=== PATIENT | male | born 1980 | race Caucasian/White ===

== ENCOUNTER 2017-01-10 11:27 | Inpatient (IN) | payer SELFPAY ==
[~2017-01-10] VITALS: Ht 175.3 cm; Wt 89.0 kg
[2017-01-10] MEDS ORDERED: KETOROLAC 30 MG INJ IV STA (12:32)
--- NOTE | 2017-01-10 13:41 | RADRPT ---
PROCEDURE: CT Abdomen and pelvis without contrast. CLINICAL INDICATION: Abdominal pain TECHNIQUE: CT scan of the abdomen and pelvis with contrast was performed on a multidetector high-r esolution CT scan. . Coronal and sagittal reformatted images were obtained from the axial source i mages. Standard CT scan of the abdomen pelvis without contrast protocols were performed. The total exam CTDI equals 18.23 mGy and the total exam DLP equals 1139.54 mGy-cm. One or more of the following dose reduction techniques were used: - Automated exposure control. - Adjustment of the mA and/or kV according to patient size. Use of iterative reconstruction technique. COMPARISON: None. FINDINGS: There is diverticular changes of the descending and sigmoid colon. Note that there is mild wall thi ckening along the segment of the mid to distal descending colon with adjacent induration and trace f luid consistent with diverticulitis. Note that axial images #100 through 106 demonstrate focal area s of gas along the posterior aspect of the region of diverticulitis consistent with micro perforatio ns. No evidence of abscess. No other evidence of intra-abdominal free air. Remainder the colon is unremarkable. The kidneys are normal in size without calcified renal calculi hydronephrosis or intra renal masses bilaterally. The urinary bladder is contracted but otherwise unremarkable. There is hepatic fatty infiltration but no focal hepatic lesions. The spleen pancreas and adrenal glands are unremarkable. The gallbladder is unremarkable and there is no evidence biliary ductal dilation. No evidence of a bdominopelvic lymphadenopathy. The stomach and small bowel are unremarkable. The aorta is unremarkable without aneurysm. The abdo yeimi and pelvic baum are unremarkable. Lung bases are unremarkable. The osseous structures are u nremarkable. IMPRESSION: 1. Diverticulitis of the mid to distal descending colon with multiple small microperforations and mild adjacent induration and trace fluid. No other evidence of intra-abdominal free fluid, free air or abscesses. 2. No evidence of calcified renal calculi. No obstructive uropathy. 3. Hepatic fatty infiltration. Addendum: Dr. Diaz was telephoned this results on 01/10/2017 at 1335 hours. RPTAT:AAJJ B Livan, Physician Date Time Electronically viewed and signed by Gerda Licona Physician on 01/10/2017 13:41 BM/
[2017-01-10] MEDS ORDERED: SOD CHLORIDE 0.9% 1,000 ML IV ONE (13:48)
--- NOTE | 2017-01-10 13:49 | ERA ---
ER Documentation Chief Complaint Date/Time DATE: 01/10/17 TIME: 13:49 Chief Complaint ap onset yesterday HPI The patient is 36-year-old male, presenting to the ER because of severe left lower quadrant pain for the last 2 days, 05/18, no aggravating or relieving factor, associated with fever. He denies similar symptoms previously, denies headache, neck pain, chest pain, dyspnea, vomiting, dysuria, diarrhea. He does not smoke nor drink Past medical/surgical history: None ROS All systems reviewed and are negative except as per history of present illness. Allergies Allergies: Coded Allergies: No Known Allergy (Unverified , 01/10/17) Physical Exam Vitals Vital Signs Date Time Temp Pulse Resp B/P Pulse Ox O2 Delivery O2 Flow Rate FiO2 01/10/17 15:31 75 14 112/61 95 Room Air 01/10/17 11:30 100.9 98 18 128/81 98 Physical Exam Const: No acute distress. Head: Atraumatic. Eyes: Normal Conjunctiva. ENT: Normal External Ears, Nose and Mouth. Neck: Full range of motion. No meningismus. Resp: Clear to auscultation bilaterally. Cardio: Regular rate and rhythm, no murmurs. Abd: Soft, non distended, normal bowel sounds, moderate left lower quadrant tenderness, no rigidity, rebound, CVA tenderness Skin: No petechiae or rashes. Back: No midline or flank tenderness. Ext: No cyanosis, or edema. Neur: Awake and alert. No focal deficit Psych: Normal Mood and Affect. Result Diagram: 01/10/17 1345 01/10/17 1345 Results 24 hrs Laboratory Tests Test 01/10/17 13:45 01/10/17 13:50 White Blood Count 14.010^3/ul Red Blood Count 4.9410^6/ul Hemoglobin 13.7g/dl Hematocrit 41.4% Mean Corpuscular Volume 83.8fl Mean Corpuscular Hemoglobin 27.7pg Mean Corpuscular Hemoglobin Concent 33.1g/dl Red Cell Distribution Width 12.8% Platelet Count 50633^3/UL Mean Platelet Volume 13.7fl Neutrophils % 67.5% Lymphocytes % 21.0% Monocytes % 9.7% Eosinophils % 1.1% Basophils % 0.4% Nucleated Red Blood Cells % 0.0/100WBC Neutrophils # 9.410^3/ul Lymphocytes # 2.910^3/ul Monocytes # 1.410^3/ul Eosinophils # 0.210^3/ul Basophils # 0.110^3/ul Nucleated Red Blood Cells # 0.010^3/ul Sodium Level 141mmol/L Potassium Level 4.5mmol/L Chloride Level 101mmol/L Carbon Dioxide Level 26mmol/L Anion Gap 19 Blood Urea Nitrogen 10mg/dl Creatinine 0.79mg/dl Glucose Level 118mg/dl Calcium Level 9.3mg/dl Total Bilirubin 0.5mg/dl Direct Bilirubin 0.00mg/dl Indirect Bilirubin 0.5mg/dl Aspartate Amino Transf (AST/SGOT) 35IU/L Alanine Aminotransferase (ALT/SGPT) 52IU/L Alkaline Phosphatase 54IU/L Total Protein 8.1g/dl Albumin 4.7g/dl Globulin 3.40g/dl Albumin/Globulin Ratio 1.38 Lipase 75U/L Urine Color LT. YELLOW Urine Clarity CLEAR Urine pH 7.0 Urine Specific Wolverine 1.015 Urine Ketones NEGATIVE Urine Nitrite NEGATIVE Urine Bilirubin NEGATIVE Urine Urobilinogen 0.2 E.U./dL Urine Leukocyte Esterase NEGATIVE Urine Microscopic RBC NONE SEEN/HPF Urine Microscopic WBC 2-5/HPF Urine Squamous Epithelial Cells OCCASIONAL Urine Hemoglobin NEGATIVE Urine Glucose NEGATIVE% Urine Total Protein 1+ Current Medications Medications (Trade) Dose Ordered Sig/René Route PRN Reason Start Time Stop Time Status Last Admin Dose Admin Ketorolac Tromethamine 30 mg 30 mg ONCE STAT IV 01/10/17 12:32 01/10/17 12:33 DC 01/10/17 12:32 Sodium Chloride 1,000 ml @ 0 mls/hr Q0M ONCE IV 01/10/17 13:48 01/10/17 13:49 DC 01/10/17 13:53 Ciprofloxacin/ Dextrose 200 ml @ 200 mls/hr ONCE ONCE IVPB 01/10/17 14:00 01/10/17 14:59 DC 01/10/17 13:53 Metronidazole (Flagyl 500 Mg (Pmx)) 100 ml @ 100 mls/hr ONCE ONCE IVPB 01/10/17 14:00 01/10/17 14:59 DC 01/10/17 13:53 Morphine Sulfate (morphine) 4 mg ONCE STAT IV 01/10/17 13:55 01/10/17 13:56 DC 01/10/17 14:11 Ondansetron HCl 4 mg 4 mg ONCE STAT IV 01/10/17 13:55 01/10/17 13:56 DC 01/10/17 14:11 Ciprofloxacin/ Dextrose 200 ml @ 200 mls/hr Q12 IVPB 01/10/17 21:00 Metronidazole 100 ml @ 100 mls/hr Q8 IVPB 01/10/17 22:00 Potassium Chloride/Dextrose/ Sod Cl (D5-1/2ns + KCl 20 Meq) 1,000 ml @ 75 mls/hr [id number] IV 01/10/17 16:08 IV Flush (NS 3 ml) 3 ml PER PROTOCOL IV 01/10/17 16:30 Ondansetron HCl (Zofran Inj) 4 mg Q6H PRN IV NAUSEA AND/OR VOMITING 01/10/17 16:30 Acetaminophen (Tylenol Tab) 650 mg Q6H PRN PO PAIN LEVEL 1-3 OR FEVER 01/10/17 16:30 Acetaminophen (Tylenol Supp) 650 mg Q6H PRN [place] PAIN LEVEL 1-3 OR FEVER 01/10/17 16:30 Oxycodone/ Acetaminophen (Percocet (5/ 325)) 1 tab Q6H PRN PO MODERATE PAIN LEVEL 4-6 01/10/17 16:30 Morphine Sulfate (morphine) 2 mg Q4H PRN IV SEVERE PAIN LEVEL 7-10 01/10/17 16:30 Docusate Sodium (Colace) 100 mg Q12H PRN PO CONSTIPATION 01/10/17 16:30 Bisacodyl (Dulcolax Supp) 10 mg DAILY PRN [place] CONSTIPATION 01/10/17 16:30 Pantoprazole (Protonix Iv) 40 mg DAILY@06 IV 01/11/17 06:00 Procedures/[place] [id number] Radiology Main Line: [phone] DIAGNOSTIC IMAGING REPORT Patient: NASIR WILDER : 1980 Age: 36 Sex: M MR #: [id number] DOS: 01/10/17 1232 Ordering MD: CARLOS DIAZ MD Location: [facility] Room/Bed: PROCEDURE: CT Abdomen and pelvis without contrast. CLINICAL INDICATION: Abdominal pain TECHNIQUE: CT scan of the abdomen and pelvis with contrast was performed on a multidetector high-resolution CT scan. . Coronal and sagittal reformatted images were obtained from the axial source images. Standard CT scan of the abdomen pelvis without contrast protocols were performed. The total exam CTDI equals 18.23 mGy and the total exam DLP equals 1139.54 mGy- cm. One or more of the following dose reduction techniques were used: - Automated exposure control. - Adjustment of the mA and/or kV according to patient size. Use of iterative reconstruction technique. COMPARISON: None. FINDINGS: There is diverticular changes of the descending and sigmoid colon. Note that there is mild wall thickening along the segment of the mid to distal descending colon with adjacent induration and trace fluid consistent with diverticulitis. Note that axial images #100 through 106 demonstrate focal areas of gas along the posterior aspect of the region of diverticulitis consistent with micro perforations. No evidence of abscess. No other evidence of intra-abdominal free air. Remainder the colon is unremarkable. The kidneys are normal in size without calcified renal calculi hydronephrosis or intra renal masses bilaterally. The urinary bladder is contracted but otherwise unremarkable. There is hepatic fatty infiltration but no focal hepatic lesions. The spleen pancreas and adrenal glands are unremarkable. The gallbladder is unremarkable and there is no evidence biliary ductal dilation. No evidence of abdominopelvic lymphadenopathy. The stomach and small bowel are unremarkable. The aorta is unremarkable without aneurysm. The abdominal and pelvic baum are unremarkable. Lung bases are unremarkable. The osseous structures are unremarkable. IMPRESSION: 1. Diverticulitis of the mid to distal descending colon with multiple small microperforations and mild adjacent induration and trace fluid. No other evidence of intra-abdominal free fluid, free air or abscesses. 2. No evidence of calcified renal calculi. No obstructive uropathy. 3. Hepatic fatty infiltration. Addendum: Dr. Diaz was telephoned this results on 01/10/2017 at 1335 hours. RPTAT:AAJJ Physician Bri Date Time Electronically viewed and signed by Physician Bri on 01/10/2017 13:41 BM/ CC: CARLOS DIAZ MD MEDICAL MAKING DECISION: The patient is a 36-year-old male, presenting with acute diverticulitis. He was treated with 1 L normal saline, Toradol 30 mg IV, morphine 4 mg IV for pain and Zofran formula IV for nausea, Cipro IV and Flagyl IV for acute diverticulitis. The differential diagnoses considered include but are not limited to cholelithiasis, cholecystitis, cystitis, pancreatitis, hepatitis, gastritis, peptic ulcer disease, gastric ulcer, appendicitis, diverticulitis, cholangitis, choledocholithiasis, partial small bowel obstruction. Departure Diagnosis: Primary Impression: Diverticulitis Condition: Stable Comments Consultation: I discussed the patient with the on-call general surgeon Dr. Beckham at 4:30 PM, who was made aware of the labs, the treatment, the patient condition. He accepted the consult I discussed the findings with the patient. I discussed the patient with the on- call hospitalist Dr. Zhong who was made aware of the lab, the treatment, the patient condition and my discussion with the general surgeon. The patient is admitted to medical surgery bed The patient's blood pressure was elevated (>120/80) but appears stable without evidence of hypertension emergency or urgency. The patient was counseled about the risks of hypertension and urged to pursue outpatient monitoring and therapy within a week after discharge with their primary care physician. GRACIE MALONE MD Jan 10, 2017 13:49
[2017-01-10] MEDS ORDERED: morphine 4 MG/ML VIAL IV STA (13:55)
[2017-01-10] MEDS ORDERED: ONDANSETRON 4 MG INJ IV STA (13:55)
[2017-01-10 13:59] LABS: ADD SCAN DIFF NO
[2017-01-10 14:00] LABS: BASOPHIL # 0.1 10^3/ul (0.0-0.1); BASOPHILS % 0.4 % (0.0-2.0); EOSINOPHILS # 0.2 10^3/ul (0.0-0.5); EOSINOPHILS % 1.1 % (0.0-7.0); HEMATOCRIT 41.4 % (42.0-52.0); HEMOGLOBIN 13.7 g/dl (14.0-18.0); LYMPHOCYTES # 2.9 10^3/ul (0.8-2.9); MEAN CORPUSCULAR HEMOGLOBIN 27.7 pg (29.0-33.0); MEAN CORPUSCULAR HGB CONC 33.1 g/dl (32.0-37.0); MEAN CORPUSCULAR VOLUME 83.8 fl (82.0-101.0); MEAN PLATELET VOLUME 13.7 fl (7.4-10.4); MONOCYTE # 1.4 10^3/ul (0.3-0.9); MONOCYTES % 9.7 % (0.0-11.0); NEUTROPHIL # 9.4 10^3/ul (1.6-7.5); NEUTROPHILS % 67.5 % (39.0-77.0); PLATELET COUNT 122 10^3/UL (140-415); RED BLOOD COUNT 4.94 10^6/ul (4.70-6.10); RED CELL DISTRIBUTION WIDTH 12.8 % (11.5-14.5)
[2017-01-10] MEDS ORDERED: CIPROFLOXACIN 400MG/D5W 200 ML IVPB ONE (14:00)
[2017-01-10] MEDS ORDERED: metroNIDAZOLE 500 MG/NS (PMX) 100 ML IVPB ONE (14:00)
[2017-01-10 14:05] LABS: ADD UMIC YES; URINE BILIRUBIN (Dip) NEGATIVE (NEGATIVE); URINE BLOOD (Dip) NEGATIVE (NEGATIVE); URINE COLOR LT. YELLOW (YELLOW); URINE GLUCOSE (Dip) NEGATIVE (NEGATIVE); URINE KETONES (Dip) NEGATIVE (NEGATIVE); URINE LEUKOCYTE ESTERASE (Dip) NEGATIVE (NEGATIVE); URINE NITRITE (Dip) NEGATIVE (NEGATIVE); URINE TOTAL PROTEIN (Dip) 1+ (NEGATIVE); URINE UROBILINOGEN (Dip) 0.2 E.U./dL (0.1-1.0)
[2017-01-10 14:10] LABS: ALBUMIN 4.7 g/dl (3.3-4.9); POTASSIUM 4.5 mmol/L (3.5-5.1)
[2017-01-10 14:11] LABS: URINE RBCS NONE SEEN /HPF (0)
[2017-01-10 14:12] LABS: SQUAMOUS EPITHELIAL CELL,UR OCCASIONAL
[2017-01-10 14:12] LABS: BILIRUBIN,INDIRECT 0.5 mg/dl (0-1.1); BILIRUBIN,TOTAL 0.5 mg/dl (0.2-1.3); CREATININE 0.79 mg/dl (0.61-1.24)
[2017-01-10 14:13] LABS: CALCIUM 9.3 mg/dl (8.4-10.2); TOTAL PROTEIN 8.1 g/dl (6.1-8.1)
[2017-01-10 14:17] LABS: ALBUMIN/GLOBULIN RATIO 1.38
[2017-01-10] MEDS ORDERED: DOCUSATE SODIUM 100 MG CAP PO PRN (16:30)
[2017-01-10] MEDS ORDERED: ACETAMINOPHEN 650 MG SUPP PR PRN (16:30)
[2017-01-10] MEDS ORDERED: morphine 2 MG INJ IV PRN (16:30)
[2017-01-10] MEDS ORDERED: BISACODYL 10 MG SUPP PR PRN (16:30)
[2017-01-10] MEDS ORDERED: ONDANSETRON 4 MG INJ IV PRN (16:30)
[2017-01-10] MEDS ORDERED: ACETAMINOPHEN 325 MG TAB PO PRN (16:30)
[2017-01-10] MEDS ORDERED: OXYCODONE/ACETAMINOPHEN (5/325) TAB PO PRN (16:30)
[2017-01-10] MEDS ORDERED: NACL 0.9% 3 ML SYG IV SCH (16:30)
--- NOTE | 2017-01-10 19:25 | HP ---
DATE OF ADMISSION: 01/10/2017 CONSULTANTS: 1. Dr. Enriquez 2. Dr. Beckham CHIEF COMPLAINT: Left lower abdominal pain. HISTORY OF PRESENT ILLNESS: This is a 36-year-old gentleman, no significant past medical history, w ho presents to [facility] secondary to having left lower quadrant abdominal pain x 3 days without any fever or chills. He denies having any sick contact. No recent travel history. No consumption of ____ food. No loose bowel, no change in the color of stool. The pain was 10/10, nonradiating. No improvement with activity or rest. The patient did not seek any medical attention for the past 3 days, did not take any wcwr-[id number] medications. Upon arrival to ER, the patien t's WBC was found to be elevated at 14. CT abdomen and pelvis was obtained which demonstrated diver ticulitis of the mid to distal descending colon with multiple small microperforations and mild ____ of the trace fluid. No other evidence of intraperitoneal free fluid, free air or abscess. There is no evidence of calcified renal calculi or obstructive uropathy. The patient was treated with IV fl uid, ciprofloxacin and Flagyl, and General Surgery was consulted from course of emergency room. At this time, patient denies having any chest pain, shortness of breath, nausea, vomiting, diarrhea. N o headache, dizziness, lightheadedness. No change in visual acuity, diplopia, photophobia. Minimal abdominal discomfort in left lower quadrant. No change in the color of stool. No hematemesis, no hematochezia, no change in his appetite. PAST MEDICAL HISTORY: None. PAST SURGICAL HISTORY: None. MEDICATIONS: None. SOCIAL HISTORY: He smokes cigarettes once or twice per week. No alcohol, no illicit drugs. REVIEW OF SYSTEMS: As above per HPI. Otherwise, 12 review of systems have been found to be negativ e. PHYSICAL EXAMINATION: VITAL SIGNS: Temperature 100.9, pulse 75, respirations 14, blood pressure 112/61, oxygen saturation 95% in room air. GENERAL APPEARANCE: The patient is lying in bed comfortable without any distress. He is awake, kimberley rt, oriented. He is able to answer my questions properly. EYES, EARS, NOSE, THROAT: Conjunctivae, lids are normal. Pupils are normal. Extraocular normal. Hearing grossly normal. Lips, teeth and gums normal. Oral mucosa is moist. NECK: Supple. Trachea is midline. No lymphadenopathy. RESPIRATORY: Effort is normal. Clear to auscultation bilaterally. CARDIOVASCULAR: Normal S1, S2. Regular rhythm and rate. Murmur, no bruits, no edema. Peripheral pulses, radial pulses palpable. Capillary refill is normal. CHEST: Normal expansion of thorax during inspiration. GASTROINTESTINAL: Abdomen is soft, mildly tender in left lower quadrant. Bowel sounds are present. No guarding, no rebound. GENITOURINARY: Deferred. MUSCULOSKELETAL: Upper, lower extremities within normal limits. Full range of motion. Strength 5/ 5, both upper and lower extremities. NEUROLOGIC: Cranial nerves II-XII are grossly intact. PSYCHIATRIC: Normal judgment and insight. Alert, oriented x3. Mood and affect are normal. LABORATORY WORK: WBC 14, hemoglobin 13.7, hematocrit 41.4, platelets 122. Sodium 141, potassium 4. 5, chloride 101, bicarbonate 26, BUN 10, creatinine 0.79, glucose 118. LFTs all within normal limit s. Urinalysis negative except total protein +1. IMAGING: CT abdomen and pelvis as above per HPI. ASSESSMENT AND PLAN: 1. Diverticulitis with microperforation. The patient has been started on ciprofloxacin and Flagyl, IV fluid, n.p.o. General Surgery and Gastroenterology have been consulted. The patient will be co ntinued to be medically managed. No surgical intervention as per General Surgery. 2. Leukocytosis secondary to above. Continue IV antibiotics. 3. For deep venous thrombosis prophylaxis, on sequential compression devices. 4. For gastrointestinal prophylaxis, on proton pump inhibitor. 5. Will continue to monitor patient closely. Further recommendations, management as per clinical c ourse. Dictated By: IMELDA PINEDA MD PN/NTS Conf#: [id number] DID#: [id number]
[2017-01-10 19:30] VITALS: TEMP 98.5
[2017-01-10 19:51] VITALS: Ht 175.3 cm; Wt 89.0 kg
[2017-01-10 20:10] VITALS: BP 133/72; RESP 18
--- NOTE | 2017-01-10 20:10 | CONS ---
DATE OF ADMISSION: 01/10/2017 DATE OF CONSULTATION: 01/10/2017 TYPE OF CONSULTATION: Surgical. REFERRING PHYSICIAN: Enrique Malone MD CHIEF COMPLAINT: 1. Diverticulitis with microperforation. 2. Abdominal pain. 3. BMI 28. 4. Leukocytosis. 5. Anemia. 6. Hepatic fatty liver. HISTORY OF PRESENT ILLNESS: Jocelynn Corona is a 36-year-old male who presents with 3 days of abdominal pain in the left lower quadrant, associated with fevers and some chills, but no nausea or vomiting. No chest pain, shortness of breath. He is having normal bowel function. No visual or neurologic changes. No dysuria. No trauma or sick contacts. No previous history of the same. Pa in is sharp without radiation. In the emergency room, he was found to have leukocytosis and fever, otherwise stable vitals. His CT scan identified diverticulitis of the mid to distal descending colon with multiple small microperfo rations and adjacent induration and trace fluid; however, no free fluid, no air, or abscesses are id entified. There is hepatic fatty infiltration. Surgical consult is obtained for further evaluation and treatment. PAST MEDICAL HISTORY: 1. Hepatic fatty liver. 2. BMI 28. 3. Diverticulosis with diverticulitis and microperforation of the descending colon. 4. Leukocytosis. 5. Anemia. PAST SURGICAL HISTORY: Denies. ALLERGIES: DENIES. SOCIAL HISTORY: Denies alcohol, drugs, or tobacco. FAMILY HISTORY: Noncontributory. REVIEW OF SYSTEMS: A 12-point systems negative unless addressed in HPI. EXAMINATION: VITAL SIGNS: T-max of 100.9, pulse 70s to 90s, blood pressure 112/61, satting 95% on room air. GENERAL: No acute distress, somewhat uncomfortable. HEENT: Pupils equal, reactive. No scleral icterus. Mucous membranes are somewhat dry. NECK: Supple. No JVD. PULMONARY: Normal respiratory effort. No wheezing. CARDIAC: S1, S2 present and regular. ABDOMEN: Soft. No rebound, no guarding, not rigid, not distended. Tender in the left lower quadra nt. EXTREMITIES: No edema. VASCULAR: Capillary refill less than 2 seconds. NEUROLOGIC: Alert, oriented, moves all 4 extremities grossly. LABORATORY AND RADIOGRAPHIC: As per chart and HPI. ASSESSMENT AND PLAN: Mr. Jocelynn Corona is a 36-year-old male. 1. Abdominal pain secondary to diverticulitis with microperforation. However, hemodynamically stab le and abdomen not peritonitic. Continue antibiotics, IV fluids, n.p.o., and close monitoring. If he continues to improve, we will advance his diet and bring him back for an eventual outpatient lapa roscopic left colectomy. However, if he is not improving or worsening, he may need to proceed with surgery, which is at higher risk for open exploration and possible colostomy. 2. Leukocytosis secondary to above. Treatment as above. 3. Anemia without evidence of acute blood loss. He will benefit from eventual outpatient colonosco py after this is improved. 4. Fatty liver. The patient is encouraged to optimize his diet and lifestyle to improve his overal l health status. 5. Body mass index 28. Once again, the patient is encouraged to optimize his nutrition and lifesty le to improve his overall health status. Thank you very much for consulting me in this patient's care. Dictated By: JAZZ CORLEY/PATRICA Conf#: [id number] DID#: [id number] CC: ENRIQUE MALONE MD;*EndCC*
[2017-01-10] MEDS: D5W-0.45 NACL + KCL 20 MEQ 1,000 ML IV SCH (20:24)
[2017-01-10] MEDS: CIPROFLOXACIN 400MG/D5W 200 ML IVPB SCH (20:24)
[2017-01-10] MEDS: metroNIDAZOLE 500 MG/NS (PMX) 100 ML IVPB SCH (23:33)
[2017-01-11] MEDS: D5W-0.45 NACL + KCL 20 MEQ 1,000 ML IV SCH ×2 (05:28→15:10)
[2017-01-11 05:42] LABS: ADD SCAN DIFF NO
[2017-01-11 05:48] LABS: ABNORMAL IP MESSAGE 1; BASOPHIL # 0.1 10^3/ul (0.0-0.1); BASOPHILS % 0.4 % (0.0-2.0); EOSINOPHILS # 0.2 10^3/ul (0.0-0.5); EOSINOPHILS % 1.2 % (0.0-7.0); LYMPHOCYTES # 3.1 10^3/ul (0.8-2.9); LYMPHOCYTES % 21.2 % (15.0-51.0); MEAN CORPUSCULAR HEMOGLOBIN 27.7 pg (29.0-33.0); MEAN CORPUSCULAR HGB CONC 32.5 g/dl (32.0-37.0); MEAN CORPUSCULAR VOLUME 85.1 fl (82.0-101.0); MEAN PLATELET VOLUME 13.9 fl (7.4-10.4); MONOCYTE # 1.5 10^3/ul (0.3-0.9); MONOCYTES % 10.5 % (0.0-11.0); NEUTROPHIL # 9.5 10^3/ul (1.6-7.5); NEUTROPHILS % 66.3 % (39.0-77.0); PLATELET COUNT 119 10^3/UL (140-415); RED CELL DISTRIBUTION WIDTH 12.6 % (11.5-14.5); WHITE BLOOD COUNT 14.4 10^3/ul (4.8-10.8)
[2017-01-11] MEDS: metroNIDAZOLE 500 MG/NS (PMX) 100 ML IVPB SCH ×3 (05:56→22:21)
[2017-01-11] MEDS: PANTOPRAZOLE 40 MG INJ IV SCH (05:56)
[2017-01-11 05:57] LABS: ALBUMIN 3.6 g/dl (3.3-4.9)
[2017-01-11 05:58] LABS: POTASSIUM 4.1 mmol/L (3.5-5.1)
[2017-01-11 06:00] LABS: BILIRUBIN,INDIRECT 0.5 mg/dl (0-1.1); BILIRUBIN,TOTAL 0.5 mg/dl (0.2-1.3); CREATININE 0.84 mg/dl (0.61-1.24)
[2017-01-11 06:01] LABS: ALBUMIN/GLOBULIN RATIO 1.12; CALCIUM 8.2 mg/dl (8.4-10.2); MAGNESIUM 1.9 mg/dl (1.7-2.5); TOTAL PROTEIN 6.8 g/dl (6.1-8.1)
[2017-01-11 07:38] VITALS: BP 109/55; RESP 19
[2017-01-11] MEDS: CIPROFLOXACIN 400MG/D5W 200 ML IVPB SCH ×2 (09:02→20:21)
--- NOTE | 2017-01-11 17:20 | PN ---
Date/Time of Note Date/Time of Note DATE: 01/11/17 TIME: 17:19 Assessment/Plan VTE Prophylaxis VTE Prophylaxis Intervention: SCD's Lines/Catheters IV [facility] Peripheral IV Urinary Cath still in place: No Assessment/Plan Assessment/Plan 1. Diverticulitis with microperforation. The patient has been started on ciprofloxacin and Flagyl, IV fluid, n.p.o. General Surgery and Gastroenterology following The patient will be continued to be medically managed. No surgical intervention as per General Surgery. 2. Leukocytosis secondary to above. Continue IV antibiotics. 3. For deep venous thrombosis prophylaxis, on sequential compression devices. 4. For gastrointestinal prophylaxis, on proton pump inhibitor. 5. Will continue to monitor patient closely. Further recommendations, management as per clinical course. Subjective 24 Hr Interval Summary Free Text/Dictation no abd pain, pt is NPO, on IVF and IV abx Exam/Review of Systems Vital Signs Vitals Vital Signs Date Time Temp Pulse Resp B/P Pulse Ox O2 Delivery O2 Flow Rate FiO2 01/11/17 07:38 99.4 88 19 109/55 95 01/10/17 19:30 Room Air Intake and Output 01/10/17 01/10/17 01/11/17 15:00 23:00 07:00 Intake Total 200 ml 625 ml Output Total 400 ml Balance 200 ml 225 ml Exam GENERAL: No acute distress, somewhat uncomfortable. HEENT: Pupils equal, reactive. No scleral icterus. Mucous membranes are somewhat dry. NECK: Supple. No JVD. PULMONARY: Normal respiratory effort. No wheezing. CARDIAC: S1, S2 present and regular. ABDOMEN: Soft. No rebound, no guarding, not rigid, not distended. Tender in the left lower quadrant. EXTREMITIES: No edema. VASCULAR: Capillary refill less than 2 seconds. NEUROLOGIC: Alert, oriented, moves all 4 extremities grossly. Results Result Diagram: 01/11/17 0525 01/11/17 0525 Results 24 hrs Laboratory Tests Test 01/11/17 05:25 White Blood Count 14.4 H Red Blood Count 4.70 Hemoglobin 13.0 L Hematocrit 40.0 L Mean Corpuscular Volume 85.1 Mean Corpuscular Hemoglobin 27.7 L Mean Corpuscular Hemoglobin Concent 32.5 Red Cell Distribution Width 12.6 Platelet Count 119 L Mean Platelet Volume 13.9 H Neutrophils % 66.3 Lymphocytes % 21.2 Monocytes % 10.5 Eosinophils % 1.2 Basophils % 0.4 Nucleated Red Blood Cells % 0.0 Neutrophils # 9.5 H Lymphocytes # 3.1 H Monocytes # 1.5 H Eosinophils # 0.2 Basophils # 0.1 Nucleated Red Blood Cells # 0.0 Sodium Level 135 Potassium Level 4.1 Chloride Level 106 Carbon Dioxide Level 23 Anion Gap 10 # Blood Urea Nitrogen 11 Creatinine 0.84 Glucose Level 109 Calcium Level 8.2 L Magnesium Level 1.9 Total Bilirubin 0.5 Direct Bilirubin 0.00 Indirect Bilirubin 0.5 Aspartate Amino Transf (AST/SGOT) 19 Alanine Aminotransferase (ALT/SGPT) 47 Alkaline Phosphatase 57 Total Protein 6.8 # Albumin 3.6 # Globulin 3.20 Albumin/Globulin Ratio 1.12 Medications Medications Current Medications Ciprofloxacin/ Dextrose 200 ml @ 200 mls/hr Q12 IVPB Last administered on 09:02; Admin Dose 200 MLS/HR; Start 01/10/17 at 21:00 Metronidazole 100 ml @ 100 mls/hr Q8 IVPB Last administered on 01/11/17 15:10 ; Admin Dose 100 MLS/HR; Start 01/10/17 at 22:00 Potassium Chloride/Dextrose/ Sod Cl (D5-1/2ns + KCl 20 Meq) 1,000 ml @ 75 mls/ hr [id number] IV Last administered on 01/11/17 15:10; Admin Dose 75 MLS/HR; Start 01/10/17 at 16:08 Ondansetron HCl (Zofran Inj) 4 mg Q6H PRN IV NAUSEA AND/OR VOMITING; Start 01/10 at 16:30 Acetaminophen (Tylenol Tab) 650 mg Q6H PRN PO PAIN LEVEL 1-3 OR FEVER; Start at 16:30 Acetaminophen (Tylenol Supp) 650 mg Q6H PRN [place] PAIN LEVEL 1-3 OR FEVER; Start 01/10/17 at 16:30 Oxycodone/ Acetaminophen (Percocet (5/ 325)) 1 tab Q6H PRN PO MODERATE PAIN LEVEL 4-6; Start 01/10/17 at 16:30 Morphine Sulfate (morphine) 2 mg Q4H PRN IV SEVERE PAIN LEVEL 7-10; Start at 16:30 Docusate Sodium (Colace) 100 mg Q12H PRN PO CONSTIPATION; Start 01/10/17 at 16: 30 Bisacodyl (Dulcolax Supp) 10 mg DAILY PRN [place] CONSTIPATION; Start 01/10/17 at 16: 30 Pantoprazole (Protonix Iv) 40 mg DAILY@06 IV Last administered on 01/11/17t 05: 56; Admin Dose 40 MG; Start 01/11/17 at 06:00 DENISE OVIEDO MD Jan 11, 2017 17:20
[2017-01-11 20:25] VITALS: BP 122/70; RESP 18
--- NOTE | 2017-01-11 23:39 | PN ---
Date/Time of Note Date/Time of Note DATE: 01/11/17 TIME: 23:36 Assessment/Plan Lines/Catheters IV Catheter Type (from [facility]): Peripheral IV [facility] in Place (from [facility]): No Assessment/Plan Chief Complaint/Hosp Course 1. Abdominal pain secondary to diverticulitis with microperforation. Hemodynamically stable and abdomen not peritonitic. -antibiotics, -IV fluids, -n.p.o -close monitoring -If he continues to improve, we will advance his diet and bring him back for an eventual outpatient laparoscopic left colectomy. However, if he is not improving or worsening, he may need to proceed with surgery, which is at higher risk for open exploration and possible colostomy. 2. Leukocytosis secondary to above. Treatment as above. 3. Anemia without evidence of acute blood loss. He will benefit from eventual outpatient colonoscopy after this is improved. 4. Fatty liver - encouraged to optimize his diet and lifestyle to improve his overall health status. 5. Body mass index 28. -encouraged to optimize his nutrition and lifestyle to improve his overall health status. Thank you Problems: Subjective 24 Hr Interval Summary Pain improved. No f/c. No n/v. No cp/sob. No cough. No tenorio/dizzy/visual or neuro changes. No dysuria. No bowel function. WBC persists. Exam/Review of Systems Vital Signs Vitals Vital Signs Date Time Temp Pulse Resp B/P Pulse Ox O2 Delivery O2 Flow Rate FiO2 01/11/17 20:25 100.1 80 18 122/70 94 01/10/17 19:30 Room Air Intake and Output 01/10/17 01/10/17 01/11/17 15:00 23:00 07:00 Intake Total 200 ml 625 ml Output Total 400 ml Balance 200 ml 225 ml Exam Free Text/Dictation GENERAL: No acute distress, somewhat uncomfortable. HEENT: Pupils equal, reactive. No scleral icterus. Mucous membranes are somewhat dry. NECK: Supple. No JVD. PULMONARY: Normal respiratory effort. No wheezing. CARDIAC: S1, S2 present and regular. ABDOMEN: Soft. No rebound, no guarding, not rigid, not distended. Tender in the left lower quadrant decreased EXTREMITIES: No edema. VASCULAR: Capillary refill less than 2 seconds. NEUROLOGIC: Alert, oriented, moves all 4 extremities grossly. Results Result Diagram: 01/11/17 0525 01/11/17 0525 JAZZ HUGO MD Jan 11, 2017 23:39
[2017-01-12] MEDS: metroNIDAZOLE 500 MG/NS (PMX) 100 ML IVPB SCH ×3 (05:44→22:53)
[2017-01-12] MEDS: PANTOPRAZOLE 40 MG INJ IV SCH (05:44)
[2017-01-12 06:18] LABS: ADD SCAN DIFF NO
[2017-01-12 06:21] LABS: BASOPHIL # 0.1 10^3/ul (0.0-0.1); BASOPHILS % 0.5 % (0.0-2.0); EOSINOPHILS # 0.3 10^3/ul (0.0-0.5); EOSINOPHILS % 2.8 % (0.0-7.0); HEMATOCRIT 39.9 % (42.0-52.0); LYMPHOCYTES # 2.8 10^3/ul (0.8-2.9); MEAN CORPUSCULAR HEMOGLOBIN 27.8 pg (29.0-33.0); MEAN CORPUSCULAR HGB CONC 32.6 g/dl (32.0-37.0); MEAN CORPUSCULAR VOLUME 85.3 fl (82.0-101.0); MEAN PLATELET VOLUME 13.2 fl (7.4-10.4); MONOCYTE # 0.9 10^3/ul (0.3-0.9); NEUTROPHIL # 5.3 10^3/ul (1.6-7.5); NEUTROPHILS % 56.3 % (39.0-77.0); PLATELET COUNT 142 10^3/UL (140-415); RED BLOOD COUNT 4.68 10^6/ul (4.70-6.10); RED CELL DISTRIBUTION WIDTH 12.5 % (11.5-14.5); WHITE BLOOD COUNT 9.4 10^3/ul (4.8-10.8)
[2017-01-12 06:43] LABS: INR 1.21; PROTIME 15.4 Sec (12.2-14.2); PT RATIO 1.2
[2017-01-12 06:45] LABS: PARTIAL THROMBOPLASTIN TIME 31.6 Sec (25.0-35.0)
[2017-01-12 06:55] LABS: ALBUMIN 3.6 g/dl (3.3-4.9); ALBUMIN/GLOBULIN RATIO 1.09; BILIRUBIN,INDIRECT 0.4 mg/dl (0-1.1); BILIRUBIN,TOTAL 0.4 mg/dl (0.2-1.3); CALCIUM 8.6 mg/dl (8.4-10.2); CREATININE 0.93 mg/dl (0.61-1.24); POTASSIUM 4.4 mmol/L (3.5-5.1); TOTAL PROTEIN 6.9 g/dl (6.1-8.1)
[2017-01-12 07:30] VITALS: BP 112/65; RESP 18
[2017-01-12] MEDS: D5W-0.45 NACL + KCL 20 MEQ 1,000 ML IV SCH ×3 (08:08→21:26)
[2017-01-12] MEDS: CIPROFLOXACIN 400MG/D5W 200 ML IVPB SCH ×2 (08:25→21:22)
[2017-01-12 19:25] VITALS: BP 114/68; RESP 20
--- NOTE | 2017-01-12 20:08 | PN ---
Date/Time of Note Date/Time of Note DATE: 01/12/17 TIME: 20:06 Assessment/Plan VTE Prophylaxis VTE Prophylaxis Intervention: SCD's Lines/Catheters IV Catheter Type (from [facility]): Peripheral IV Urinary Cath still in place: No Assessment/Plan Assessment/Plan 1. Diverticulitis with microperforation. The patient has been started on ciprofloxacin and Flagyl, IV fluid, n.p.o. General Surgery and Gastroenterology following The patient will be continued to be medically managed. No surgical intervention as per General Surgery. 2. Leukocytosis secondary to above. Continue IV antibiotics. 3. For deep venous thrombosis prophylaxis, on sequential compression devices. 4. For gastrointestinal prophylaxis, on proton pump inhibitor. 5. Will continue to monitor patient closely. Further recommendations, management as per clinical course. Subjective 24 Hr Interval Summary Free Text/Dictation no abd pain, pain is passing gas, Exam/Review of Systems Vital Signs Vitals Vital Signs Date Time Temp Pulse Resp B/P Pulse Ox O2 Delivery O2 Flow Rate FiO2 01/12/17 19:25 99.4 72 20 114/68 95 01/10/17 19:30 Room Air Intake and Output 01/11/17 01/11/17 01/12/17 14:59 22:59 06:59 Intake Total 1125 ml 950 ml Output Total 1200 ml 700 ml Balance -75 ml 250 ml Exam GENERAL: No acute distress, somewhat uncomfortable. HEENT: Pupils equal, reactive. No scleral icterus. Mucous membranes are somewhat dry. NECK: Supple. No JVD. PULMONARY: Normal respiratory effort. No wheezing. CARDIAC: S1, S2 present and regular. ABDOMEN: Soft. No rebound, no guarding, not rigid, not distended. Tender in the left lower quadrant. EXTREMITIES: No edema. VASCULAR: Capillary refill less than 2 seconds. NEUROLOGIC: Alert, oriented, moves all 4 extremities grossly. Results Result Diagram: 01/12/17 0559 01/12/17 0559 Results 24 hrs Laboratory Tests Test 01/12/17 05:59 White Blood Count 9.4 # Red Blood Count 4.68 L Hemoglobin 13.0 L Hematocrit 39.9 L Mean Corpuscular Volume 85.3 Mean Corpuscular Hemoglobin 27.8 L Mean Corpuscular Hemoglobin Concent 32.6 Red Cell Distribution Width 12.5 Platelet Count 142 Mean Platelet Volume 13.2 H Neutrophils % 56.3 Lymphocytes % 30.0 Monocytes % 10.0 Eosinophils % 2.8 Basophils % 0.5 Nucleated Red Blood Cells % 0.0 Neutrophils # 5.3 Lymphocytes # 2.8 Monocytes # 0.9 Eosinophils # 0.3 Basophils # 0.1 Nucleated Red Blood Cells # 0.0 Prothrombin Time 15.4 H Prothrombin Time Ratio 1.2 INR International Normalized Ratio 1.21 Activated Partial Thromboplast Time 31.6 Sodium Level 138 Potassium Level 4.4 Chloride Level 106 Carbon Dioxide Level 24 Anion Gap 12 Blood Urea Nitrogen 11 Creatinine 0.93 Glucose Level 103 Calcium Level 8.6 Total Bilirubin 0.4 Direct Bilirubin 0.00 Indirect Bilirubin 0.4 Aspartate Amino Transf (AST/SGOT) 22 Alanine Aminotransferase (ALT/SGPT) 45 Alkaline Phosphatase 56 Total Protein 6.9 Albumin 3.6 Globulin 3.30 H Albumin/Globulin Ratio 1.09 Medications Medications Current Medications Ciprofloxacin/ Dextrose 200 ml @ 200 mls/hr Q12 IVPB Last administered on 08:25; Admin Dose 200 MLS/HR; Start 01/10/17 at 21:00 Metronidazole 100 ml @ 100 mls/hr Q8 IVPB Last administered on 01/12/17 13:18 ; Admin Dose 100 MLS/HR; Start 01/10/17 at 22:00 Potassium Chloride/Dextrose/ Sod Cl (D5-1/2ns + KCl 20 Meq) 1,000 ml @ 75 mls/ hr [id number] IV Last administered on 01/12/17 09:51; Admin Dose 75 MLS/HR; Start 01/10/17 at 16:08 Ondansetron HCl (Zofran Inj) 4 mg Q6H PRN IV NAUSEA AND/OR VOMITING; Start 01/10 at 16:30 Acetaminophen (Tylenol Tab) 650 mg Q6H PRN PO PAIN LEVEL 1-3 OR FEVER Last administered on 01/11/17 20:21; Admin Dose 650 MG; Start 01/10/17 at 16:30 Acetaminophen (Tylenol Supp) 650 mg Q6H PRN [place] PAIN LEVEL 1-3 OR FEVER; Start 01/10/17 at 16:30 Oxycodone/ Acetaminophen (Percocet (5/ 325)) 1 tab Q6H PRN PO MODERATE PAIN LEVEL 4-6; Start 4/4/17 at 16:30 Morphine Sulfate (morphine) 2 mg Q4H PRN IV SEVERE PAIN LEVEL 7-10; Start at 16:30 Docusate Sodium (Colace) 100 mg Q12H PRN [place] CONSTIPATION; Start 01/10/17 at 16: 30 Bisacodyl (Dulcolax Supp) 10 mg DAILY PRN [place] CONSTIPATION; Start 01/10/17 at 16: 30 Pantoprazole (Protonix Iv) 40 mg DAILY@06 IV Last administered on 01/12/17t 05: 44; Admin Dose 40 MG; Start 01/11/17 at 06:00 DENISE OVIEDO MD Jan 12, 2017 20:08
[2017-01-13] MEDS: D5W-0.45 NACL + KCL 20 MEQ 1,000 ML IV SCH ×2 (03:47→08:51)
[2017-01-13] MEDS: metroNIDAZOLE 500 MG/NS (PMX) 100 ML IVPB SCH ×3 (05:35→21:56)
[2017-01-13] MEDS: PANTOPRAZOLE 40 MG INJ IV SCH (05:35)
[2017-01-13 06:00] LABS: ADD SCAN DIFF NO
[2017-01-13 06:17] LABS: BASOPHIL # 0.1 10^3/ul (0.0-0.1); BASOPHILS % 0.7 % (0.0-2.0); EOSINOPHILS # 0.3 10^3/ul (0.0-0.5); EOSINOPHILS % 2.7 % (0.0-7.0); HEMATOCRIT 40.4 % (42.0-52.0); HEMOGLOBIN 13.3 g/dl (14.0-18.0); LYMPHOCYTES # 2.6 10^3/ul (0.8-2.9); LYMPHOCYTES % 28.3 % (15.0-51.0); MEAN CORPUSCULAR HEMOGLOBIN 27.7 pg (29.0-33.0); MEAN CORPUSCULAR HGB CONC 32.9 g/dl (32.0-37.0); MEAN CORPUSCULAR VOLUME 84.2 fl (82.0-101.0); MEAN PLATELET VOLUME 13.5 fl (7.4-10.4); MONOCYTE # 0.7 10^3/ul (0.3-0.9); MONOCYTES % 7.9 % (0.0-11.0); NEUTROPHIL # 5.5 10^3/ul (1.6-7.5); PLATELET COUNT 172 10^3/UL (140-415); RED CELL DISTRIBUTION WIDTH 12.5 % (11.5-14.5); WHITE BLOOD COUNT 9.2 10^3/ul (4.8-10.8)
[2017-01-13 06:25] LABS: INR 1.16; PROTIME 14.9 Sec (12.2-14.2); PT RATIO 1.2
[2017-01-13 06:26] LABS: PARTIAL THROMBOPLASTIN TIME 30.9 Sec (25.0-35.0)
[2017-01-13 07:14] LABS: CALCIUM 8.7 mg/dl (8.4-10.2); CREATININE 0.91 mg/dl (0.61-1.24); POTASSIUM 4.2 mmol/L (3.5-5.1)
[2017-01-13 07:44] VITALS: BP 111/61; RESP 16
[2017-01-13] MEDS: CIPROFLOXACIN 400MG/D5W 200 ML IVPB SCH ×2 (07:59→20:38)
--- NOTE | 2017-01-13 12:43 | PN ---
Date/Time of Note Date/Time of Note DATE: 01/13/17 TIME: 12:41 Assessment/Plan VTE Prophylaxis VTE Prophylaxis Intervention: SCD's Lines/Catheters IV Catheter Type (from [facility]): Peripheral IV Urinary Cath still in place: No Assessment/Plan Assessment/Plan 1. Diverticulitis with microperforation. continue on ciprofloxacin and Flagyl , IV fluid, n.p.o. General Surgery and Gastroenterology following The patient will be continued to be medically managed. No surgical intervention as per General Surgery. still NPO , on IV fluids , General surgery to decide about diet 2. Leukocytosis secondary to above. Continue IV antibiotics. 3. For deep venous thrombosis prophylaxis, on sequential compression devices. 4. For gastrointestinal prophylaxis, on proton pump inhibitor. 5. Will continue to monitor patient closely. Further recommendations, management as per clinical course. Subjective 24 Hr Interval Summary Free Text/Dictation no abdominal pain, passing gas, BP stable Exam/Review of Systems Vital Signs Vitals Vital Signs Date Time Temp Pulse Resp B/P Pulse Ox O2 Delivery O2 Flow Rate FiO2 01/13/17 07:44 98.7 72 16 111/61 95 01/10/17 19:30 Room Air Intake and Output 01/12/17 01/12/17 01/13/17 14:59 22:59 06:59 Intake Total 400 ml 500 ml 1125 ml Output Total 1000 ml 300 ml Balance 400 ml -500 ml 825 ml Exam GENERAL: No acute distress, somewhat uncomfortable. HEENT: Pupils equal, reactive. No scleral icterus. Mucous membranes are somewhat dry. NECK: Supple. No JVD. PULMONARY: Normal respiratory effort. No wheezing. CARDIAC: S1, S2 present and regular. ABDOMEN: Soft. No rebound, no guarding, not rigid, not distended. Tender in the left lower quadrant. EXTREMITIES: No edema. VASCULAR: Capillary refill less than 2 seconds. NEUROLOGIC: Alert, oriented, moves all 4 extremities grossly. Results Result Diagram: 01/13/1725 01/13/17 0525 Results 24 hrs Laboratory Tests Test 01/13/17 05:25 White Blood Count 9.2 Red Blood Count 4.80 Hemoglobin 13.3 L Hematocrit 40.4 L Mean Corpuscular Volume 84.2 Mean Corpuscular Hemoglobin 27.7 L Mean Corpuscular Hemoglobin Concent 32.9 Red Cell Distribution Width 12.5 Platelet Count 172 # Mean Platelet Volume 13.5 H Neutrophils % 60.0 Lymphocytes % 28.3 Monocytes % 7.9 Eosinophils % 2.7 Basophils % 0.7 Nucleated Red Blood Cells % 0.0 Neutrophils # 5.5 Lymphocytes # 2.6 Monocytes # 0.7 Eosinophils # 0.3 Basophils # 0.1 Nucleated Red Blood Cells # 0.0 Prothrombin Time 14.9 H Prothrombin Time Ratio 1.2 INR International Normalized Ratio 1.16 Activated Partial Thromboplast Time 30.9 Sodium Level 138 Potassium Level 4.2 Chloride Level 106 Carbon Dioxide Level 24 Anion Gap 12 Blood Urea Nitrogen 12 Creatinine 0.91 Glucose Level 97 Calcium Level 8.7 Medications Medications Current Medications Ciprofloxacin/ Dextrose 200 ml @ 200 mls/hr Q12 IVPB Last administered on 07:59; Admin Dose 200 MLS/HR; Start 01/10/17 at 21:00 Metronidazole 100 ml @ 100 mls/hr Q8 IVPB Last administered on 01/13/17 05:35 ; Admin Dose 100 MLS/HR; Start 01/10/17 at 22:00 Potassium Chloride/Dextrose/ Sod Cl (D5-1/2ns + KCl 20 Meq) 1,000 ml @ 75 mls/ hr [id number] IV Last administered on 01/13/17 03:47; Admin Dose 75 MLS/HR; Start 01/10/17 at 16:08 Ondansetron HCl (Zofran Inj) 4 mg Q6H PRN IV NAUSEA AND/OR VOMITING; Start 01/10 at 16:30 Acetaminophen (Tylenol Tab) 650 mg Q6H PRN PO PAIN LEVEL 1-3 OR FEVER Last administered on 01/11/17 20:21; Admin Dose 650 MG; Start 01/10/17 at 16:30 Acetaminophen (Tylenol Supp) 650 mg Q6H PRN [place] PAIN LEVEL 1-3 OR FEVER; Start 01/10/17 at 16:30 Oxycodone/ Acetaminophen (Percocet (5/ 325)) 1 tab Q6H PRN PO MODERATE PAIN LEVEL 4-6; Start 01/10/17 at 16:30 Morphine Sulfate (morphine) 2 mg Q4H PRN IV SEVERE PAIN LEVEL 7-10; Start at 16:30 Docusate Sodium (Colace) 100 mg Q12H PRN PO CONSTIPATION; Start 01/10/17 at 16: 30 Bisacodyl (Dulcolax Supp) 10 mg DAILY PRN [place] CONSTIPATION; Start 01/10/17 at 16: 30 Pantoprazole (Protonix Iv) 40 mg DAILY@06 IV Last administered on 01/13/17t 05: 35; Admin Dose 40 MG; Start 01/11/17 at 06:00 DENISE OVIEDO MD Jan 13, 2017 12:43
--- NOTE | 2017-01-13 13:15 | CONS ---
Date/Time of Note Date/Time of Note DATE: 01/13/17 TIME: 13:06 Assessment/Plan Assessment/Plan Additional Assessment/Plan Abdominal pain/Diverticulitis/microperforation Continue antibiotic treatment NPO till pain free Advance diet per surgery recommendation Colonoscopy in 6 - 8 weeks after completion of antibiotic treatment Rule out absess, Surgery following May require an inpatient correction of microperforation Further recommendations depend on clinical course Patient seen in collaboration with Dr. Enriquez Consultation Date/Type/Reason Admit Date/Time Jan 10, 2017 at 14:39 Reason for Consultation GI Hx of Present Illness Mr. Corona is a 36-year-old [place]alese-speaking male that presented to ED with complaints of abdominal pain 3 days. Patient denies nausea, vomiting, fever, chills, sick contacts, travel outside [place], and previous episode. Patient had CT abdomen and pelvis was obtained which demonstrated diverticulitis of the mid to distal descending colon with multiple small microperforations. Surgery is currently following and presently there is no plan for surgery. At bedside patient denies abdominal pain and reports passing gas. Patient is currently still n.p.o. Will defer advancement of diet to surgery. At bedside patient notes left lower quadrant abdominal pain with palpation. Patient denies significant past medical history. Social History Smoking Status: Never smoker Exam/Review of Systems Vital Signs Vitals Vital Signs Date Time Temp Pulse Resp B/P Pulse Ox O2 Delivery O2 Flow Rate FiO2 01/13/17 07:44 98.7 72 16 111/61 95 01/10/17 19:30 Room Air Intake and Output 01/12/17 01/12/17 01/13/17 14:59 22:59 06:59 Intake Total 400 ml 500 ml 1125 ml Output Total 1000 ml 300 ml Balance 400 ml -500 ml 825 ml Exam Constitutional: alert, oriented, well developed Psych: nl mood/affect Head: normocephalic Eyes: EOMI, nl conjunctiva, nl lids ENMT: nl external ears & nose, nl lips & teeth, nl nasal mucosa & septum Respiratory: clear to auscultation, normal air movement Cardiovascular: regular rate and rhythm Gastrointestinal: soft, left lower quadrant tenderness Musculoskeletal: nl extremities to inspection Neurological: [employer] II-XII intact Results Result Diagram: 01/13/17 0525 01/13/17524 Results 24 hrs Laboratory Tests Test 01/13/17 05:25 White Blood Count 9.2 Red Blood Count 4.80 Hemoglobin 13.3 L Hematocrit 40.4 L Mean Corpuscular Volume 84.2 Mean Corpuscular Hemoglobin 27.7 L Mean Corpuscular Hemoglobin Concent 32.9 Red Cell Distribution Width 12.5 Platelet Count 172 # Mean Platelet Volume 13.5 H Neutrophils % 60.0 Lymphocytes % 28.3 Monocytes % 7.9 Eosinophils % 2.7 Basophils % 0.7 Nucleated Red Blood Cells % 0.0 Neutrophils # 5.5 Lymphocytes # 2.6 Monocytes # 0.7 Eosinophils # 0.3 Basophils # 0.1 Nucleated Red Blood Cells # 0.0 Prothrombin Time 14.9 H Prothrombin Time Ratio 1.2 INR International Normalized Ratio 1.16 Activated Partial Thromboplast Time 30.9 Sodium Level 138 Potassium Level 4.2 Chloride Level 106 Carbon Dioxide Level 24 Anion Gap 12 Blood Urea Nitrogen 12 Creatinine 0.91 Glucose Level 97 Calcium Level 8.7 Medications Medications Current Medications Ciprofloxacin/ Dextrose 200 ml @ 200 mls/hr Q12 IVPB Last administered on 07:59; Admin Dose 200 MLS/HR; Start 01/10/17 at 21:00 Metronidazole 100 ml @ 100 mls/hr Q8 IVPB Last administered on 01/13/17 05:35 ; Admin Dose 100 MLS/HR; Start 01/10/17 at 22:00 Potassium Chloride/Dextrose/ Sod Cl (D5-1/2ns + KCl 20 Meq) 1,000 ml @ 75 mls/ hr [id number] IV Last administered on 01/13/17 03:47; Admin Dose 75 MLS/HR; Start 01/10/17 at 16:08 Ondansetron HCl (Zofran Inj) 4 mg Q6H PRN IV NAUSEA AND/OR VOMITING; Start 01/10 at 16:30 Acetaminophen (Tylenol Tab) 650 mg Q6H PRN PO PAIN LEVEL 1-3 OR FEVER Last administered on 01/11/17 20:21; Admin Dose 650 MG; Start 01/10/17 at 16:30 Acetaminophen (Tylenol Supp) 650 mg Q6H PRN [place] PAIN LEVEL 1-3 OR FEVER; Start 01/10/17 at 16:30 Oxycodone/ Acetaminophen (Percocet (5/ 325)) 1 tab Q6H PRN PO MODERATE PAIN LEVEL 4-6; Start 01/10/17 at 16:30 Morphine Sulfate (morphine) 2 mg Q4H PRN IV SEVERE PAIN LEVEL 7-10; Start at 16:30 Docusate Sodium (Colace) 100 mg Q12H PRN PO CONSTIPATION; Start 01/10/17 at 16: 30 Bisacodyl (Dulcolax Supp) 10 mg DAILY PRN [place] CONSTIPATION; Start 01/10/17 at 16: 30 Pantoprazole (Protonix Iv) 40 mg DAILY@06 IV Last administered on 01/13/17t 05: 35; Admin Dose 40 MG; Start 01/11/17 at 06:00 JOSE DE JESUS KRISHNAMURTHY Jan 13, 2017 13:14
--- NOTE | 2017-01-13 15:31 | PN ---
Date/Time of Note Date/Time of Note DATE: 01/12/17 TIME: 21:28 Assessment/Plan Lines/Catheters IV Catheter Type (from [facility]): Peripheral IV [place] in Place (from [facility]): No Assessment/Plan Chief Complaint/Hosp Course 1. Abdominal pain secondary to diverticulitis with microperforation. Hemodynamically stable and abdomen not peritonitic. Improving. -Antibiotics, -IV fluids, -n.p.o and start diet tomorrow if continues to improve -Eventual outpatient follow-up for elective laparoscopic resection my. 2. Leukocytosis secondary to above. Improved 3. Anemia without evidence of acute blood loss. He will benefit from eventual outpatient colonoscopy after this is improved. 4. Fatty liver - encouraged to optimize his diet and lifestyle to improve his overall health status. 5. Body mass index 28. -encouraged to optimize his nutrition and lifestyle to improve his overall health status. Thank you Late entry 01/12 Problems: Subjective 24 Hr Interval Summary Pain resolved. No f/c. No n/v. No cp/sob. No cough. No tenorio/dizzy/visual or neuro changes. No dysuria. Passing gas. Bowel movements small yesterday. WBC resolved. Exam/Review of Systems Vital Signs Vitals Vital Signs Date Time Temp Pulse Resp B/P Pulse Ox O2 Delivery O2 Flow Rate FiO2 01/13/17 07:44 98.7 72 16 111/61 95 01/10/17 19:30 Room Air Intake and Output 01/12/17 01/12/17 01/13/17 15:00 23:00 07:00 Intake Total 400 ml 500 ml 1125 ml Output Total 1000 ml 300 ml Balance 400 ml -500 ml 825 ml Exam Free Text/Dictation GENERAL: No acute distress, somewhat uncomfortable. HEENT: Pupils equal, reactive. No scleral icterus. Mucous membranes are somewhat dry. NECK: Supple. No JVD. PULMONARY: Normal respiratory effort. No wheezing. CARDIAC: S1, S2 present and regular. ABDOMEN: Soft. No rebound, no guarding, not rigid, not distended. Nontender EXTREMITIES: No edema. VASCULAR: Capillary refill less than 2 seconds. NEUROLOGIC: Alert, oriented, moves all 4 extremities grossly. Results Result Diagram: 01/13/17 0525 01/13/17 0525 JAZZ HUGO MD Jan 13, 2017 15:31
--- NOTE | 2017-01-13 15:32 | PN ---
Date/Time of Note Date/Time of Note DATE: 01/13/17 TIME: 15:31 Assessment/Plan Lines/Catheters IV Catheter Type (from [facility]): Peripheral IV [place] in Place (from [facility]): No Assessment/Plan Chief Complaint/Hosp Course 1. Abdominal pain secondary to diverticulitis with microperforation. Hemodynamically stable and abdomen not peritonitic. Improving. -Antibiotics, -IV fluids, -Clears and advance as tolerated -Eventual outpatient follow-up for elective laparoscopic resection my. 2. Leukocytosis secondary to above. Improved 3. Anemia without evidence of acute blood loss. He will benefit from eventual outpatient colonoscopy after this is improved. 4. Fatty liver - encouraged to optimize his diet and lifestyle to improve his overall health status. 5. Body mass index 28. -encouraged to optimize his nutrition and lifestyle to improve his overall health status. Thank you, Problems: Subjective 24 Hr Interval Summary No pain. No f/c. No n/v. No cp/sob. No cough. No tenorio/dizzy/visual or neuro changes. No dysuria. Passing gas. WBC normal. Exam/Review of Systems Vital Signs Vitals Vital Signs Date Time Temp Pulse Resp B/P Pulse Ox O2 Delivery O2 Flow Rate FiO2 01/13/17 07:44 98.7 72 16 111/61 95 01/10/17 19:30 Room Air Intake and Output 01/12/17 01/12/17 01/13/17 15:00 23:00 07:00 Intake Total 400 ml 500 ml 1125 ml Output Total 1000 ml 300 ml Balance 400 ml -500 ml 825 ml Exam Free Text/Dictation GENERAL: No acute distress, somewhat uncomfortable. HEENT: Pupils equal, reactive. No scleral icterus. Mucous membranes are somewhat dry. NECK: Supple. No JVD. PULMONARY: Normal respiratory effort. No wheezing. CARDIAC: S1, S2 present and regular. ABDOMEN: Soft. No rebound, no guarding, not rigid, not distended. Nontender EXTREMITIES: No edema. VASCULAR: Capillary refill less than 2 seconds. NEUROLOGIC: Alert, oriented, moves all 4 extremities grossly. Results Result Diagram: 01/13/17 0525 01/13/17 0525 JAZZ HUGO MD Jan 13, 2017 15:32
[2017-01-13 20:30] VITALS: BP 121/77; PULSE 72; RESP 18
[2017-01-14] MEDS: D5W-0.45 NACL + KCL 20 MEQ 1,000 ML IV SCH (00:13)
[2017-01-14] MEDS: metroNIDAZOLE 500 MG/NS (PMX) 100 ML IVPB SCH (05:30)
[2017-01-14] MEDS: PANTOPRAZOLE 40 MG INJ IV SCH (05:30)
[2017-01-14 06:24] LABS: ADD SCAN DIFF NO
[2017-01-14 06:35] LABS: ALBUMIN 3.8 g/dl (3.3-4.9); POTASSIUM 3.8 mmol/L (3.5-5.1)
[2017-01-14 06:38] LABS: ALBUMIN/GLOBULIN RATIO 1.08; BILIRUBIN,INDIRECT 0.5 mg/dl (0-1.1); BILIRUBIN,TOTAL 0.5 mg/dl (0.2-1.3); CALCIUM 8.6 mg/dl (8.4-10.2); CREATININE 0.92 mg/dl (0.61-1.24); TOTAL PROTEIN 7.3 g/dl (6.1-8.1)
[2017-01-14 07:21] LABS: BASOPHIL # 0.1 10^3/ul (0.0-0.1); BASOPHILS % 0.6 % (0.0-2.0); EOSINOPHILS # 0.2 10^3/ul (0.0-0.5); EOSINOPHILS % 2.4 % (0.0-7.0); HEMATOCRIT 41.2 % (42.0-52.0); HEMOGLOBIN 13.3 g/dl (14.0-18.0); LYMPHOCYTES % 32.2 % (15.0-51.0); MEAN CORPUSCULAR HEMOGLOBIN 27.4 pg (29.0-33.0); MEAN CORPUSCULAR HGB CONC 32.3 g/dl (32.0-37.0); MEAN CORPUSCULAR VOLUME 84.8 fl (82.0-101.0); MEAN PLATELET VOLUME 13.3 fl (7.4-10.4); MONOCYTE # 0.8 10^3/ul (0.3-0.9); MONOCYTES % 8.8 % (0.0-11.0); NEUTROPHIL # 5.2 10^3/ul (1.6-7.5); NEUTROPHILS % 55.7 % (39.0-77.0); PLATELET COUNT 175 10^3/UL (140-415); RED BLOOD COUNT 4.86 10^6/ul (4.70-6.10); RED CELL DISTRIBUTION WIDTH 12.4 % (11.5-14.5); WHITE BLOOD COUNT 9.4 10^3/ul (4.8-10.8)
[2017-01-14 08:12] VITALS: BP 106/66; RESP 20
[2017-01-14] MEDS: CIPROFLOXACIN 400MG/D5W 200 ML IVPB SCH (08:33)
--- NOTE | 2017-01-14 09:42 | PN ---
Date/Time of Note Date/Time of Note DATE: 01/14/17 TIME: 09:32 Assessment/Plan VTE Prophylaxis VTE Prophylaxis Intervention: ambulation Lines/Catheters IV C[facility]ter Type (from [facility]): [place] Urinary Cath still in place: No Assessment/Plan Chief Complaint/Hosp Course Assessment 1. Diverticulitis with microperforation 2. Acute abdomen secondary to above Plan 1. Continue antibiotics 2. This GI and surgical recommendations discharge home if okay with consultants 3. Encourage ambulation 4. We'll advance diet if well tolerated anticipate discharge today with outpatient follow-up 5. Discharge with 10 days of by mouth Flagyl and ciprofloxacin Problems: Subjective 24 Hr Interval Summary Free Text/Dictation Patient comfortable this morning no abdominal pain tolerating clear liquids Exam/Review of Systems Vital Signs Vitals Vital Signs Date Time Temp Pulse Resp B/P Pulse Ox O2 Delivery O2 Flow Rate FiO2 01/14/17 08:12 98.4 72 20 106/66 95 01/13/17 20:30 Room Air Intake and Output 01/13/17 01/13/17 01/14/17 15:00 23:00 07:00 Intake Total 200 ml 1225 ml 1325 ml Output Total 1000 ml Balance 200 ml 225 ml 1325 ml Exam GENERAL: Well-nourished well-developed gentleman comfortable at rest no acute distress VITAL SIGNS: per chart NECK: Supple. No JVD or lymphadenopathy. CARDIAC EXAM: S1, S2. No added sounds or murmurs. CHEST: clear bilaterally, No added sounds, rales or wheezes ABDOMEN: Soft, nontender. No guarding or rebound. EXTREMITIES: No cyanosis, clubbing or edema. NEUROLOGIC: Generalized weakness. No focal deficits. Results Result Diagram: 01/14/17 0515 01/14/17 0515 Results 24 hrs Laboratory Tests Test 01/14/17 05:15 White Blood Count 9.4 Red Blood Count 4.86 Hemoglobin 13.3 L Hematocrit 41.2 L Mean Corpuscular Volume 84.8 Mean Corpuscular Hemoglobin 27.4 L Mean Corpuscular Hemoglobin Concent 32.3 Red Cell Distribution Width 12.4 Platelet Count 175 Mean Platelet Volume 13.3 H Neutrophils % 55.7 Lymphocytes % 32.2 Monocytes % 8.8 Eosinophils % 2.4 Basophils % 0.6 Nucleated Red Blood Cells % 0.0 Neutrophils # 5.2 Lymphocytes # 3.0 H Monocytes # 0.8 Eosinophils # 0.2 Basophils # 0.1 Nucleated Red Blood Cells # 0.0 Sodium Level 142 Potassium Level 3.8 Chloride Level 104 Carbon Dioxide Level 22 Anion Gap 20 #H Blood Urea Nitrogen 12 Creatinine 0.92 Glucose Level 96 Calcium Level 8.6 Total Bilirubin 0.5 Direct Bilirubin 0.00 Indirect Bilirubin 0.5 Aspartate Amino Transf (AST/SGOT) 23 Alanine Aminotransferase (ALT/SGPT) 37 Alkaline Phosphatase 49 Total Protein 7.3 Albumin 3.8 Globulin 3.50 H Albumin/Globulin Ratio 1.08 Medications Medications Current Medications Ciprofloxacin/ Dextrose 200 ml @ 200 mls/hr Q12 IVPB Last administered on 08:33; Admin Dose 200 MLS/HR; Start 01/10/17 at 21:00 Metronidazole 100 ml @ 100 mls/hr Q8 IVPB Last administered on 01/14/17 05:30 ; Admin Dose 100 MLS/HR; Start 01/10/17 at 22:00 Potassium Chloride/Dextrose/ Sod Cl (D5-1/2ns + KCl 20 Meq) 1,000 ml @ 75 mls/ hr [id number] IV Last administered on 01/14/17 00:13; Admin Dose 75 MLS/HR; Start 01/10/17 at 16:08 Ondansetron HCl (Zofran Inj) 4 mg Q6H PRN IV NAUSEA AND/OR VOMITING; Start 01/10 at 16:30 Acetaminophen (Tylenol Tab) 650 mg Q6H PRN PO PAIN LEVEL 1-3 OR FEVER Last administered on 01/11/17 20:21; Admin Dose 650 MG; Start 01/10/17 at 16:30 Acetaminophen (Tylenol Supp) 650 mg Q6H PRN [place] PAIN LEVEL 1-3 OR FEVER; Start 01/10/17 at 16:30 Oxycodone/ Acetaminophen (Percocet (5/ 325)) 1 tab Q6H PRN PO MODERATE PAIN LEVEL 4-6; Start 01/10/17 at 16:30 Morphine Sulfate (morphine) 2 mg Q4H PRN IV SEVERE PAIN LEVEL 7-10; Start at 16:30 Docusate Sodium (Colace) 100 mg Q12H PRN PO CONSTIPATION; Start 01/10/17 at 16: 30 Bisacodyl (Dulcolax Supp) 10 mg DAILY PRN [place] CONSTIPATION; Start 01/10/17 at 16: 30 Pantoprazole (Protonix Iv) 40 mg DAILY@06 IV Last administered on 01/14/17t 05: 30; Admin Dose 40 MG; Start 01/11/17 at 06:00 FABIAN SHIELDS MD, [facility] Jan 14, 2017 09:42
--- NOTE | 2017-01-14 09:43 | PDOCDIS ---
Discharge Instructions DIAGNOSIS Discharge Diagnosis: diverticulitis with microperforation CONDITION Patient Condition: Good HOME CARE INSTRUCTIONS: Diet Instructions: RegularSpecial Diet: clear liquids ACTIVITY: Activity Restrictions: No Restrictions FOLLOW UP/APPOINTMENTS Appointments Dr. Roger Beckham general surgery 2 weeks FABIAN SHIELDS MD, [facility] Jan 14, 2017 09:43
--- NOTE | 2017-01-14 09:56 | CONS ---
Date/Time of Note Date/Time of Note DATE: 01/14/17 TIME: 09:54 Assessment/Plan Assessment/Plan Chief Complaint/Hosp Course Mr. Corona is a 36-year-old [place]er-speaking male that presented to ED with complaints of abdominal pain 3 days. Patient denies nausea, vomiting, fever, chills, sick contacts, travel outside [place], and previous episode. Patient had CT abdomen and pelvis was obtained which demonstrated diverticulitis of the mid to distal descending colon with multiple small microperforations. Surgery is currently following and presently there is no plan for surgery. At bedside patient denies abdominal pain and reports passing gas. Patient is currently still n.p.o. Will defer advancement of diet to surgery. At bedside patient notes left lower quadrant abdominal pain with palpation. Patient denies significant past medical history. Problems: Additional Assessment/Plan Abdominal pain/Diverticulitis/microperforation Continue antibiotic treatment Advance diet as tolerated Colonoscopy in 6 - 8 weeks after completion of antibiotic treatment Surgery following F/u OP for elective surgery Further recommendations depend on clinical course Patient seen in collaboration with Dr. Enriquez Consultation Date/Type/Reason Admit Date/Time Jan 10, 2017 at 14:39 Initial Consult Date Type of Consultation: GI 24 HR Interval Summary Free Text/Dictation Reports less abdominal pain, will advance diet, Stable for discharge if tolerates diet Recommend outpatient follow-up after completion of antibiotics Exam/Review of Systems Vital Signs Vitals Vital Signs Date Time Temp Pulse Resp B/P Pulse Ox O2 Delivery O2 Flow Rate FiO2 01/14/17 08:12 98.4 72 20 106/66 95 01/13/17 20:30 Room Air Intake and Output 01/13/17 01/13/17 01/14/17 15:00 23:00 07:00 Intake Total 200 ml 1225 ml 1325 ml Output Total 1000 ml Balance 200 ml 225 ml 1325 ml Exam Constitutional: alert, oriented, well developed Psych: nl mood/affect Head: normocephalic Eyes: EOMI, nl conjunctiva, nl lids ENMT: nl external ears & nose, nl lips & teeth, nl nasal mucosa & septum Respiratory: clear to auscultation, normal air movement Cardiovascular: regular rate and rhythm Gastrointestinal: soft, left lower quadrant tenderness Musculoskeletal: nl extremities to inspection Neurological: FUNDS DEVELOPMENT DIRECTOR II-XII intact Results Result Diagram: 01/14/17 0515 01/14/17 0515 Results 24 hrs Laboratory Tests Test 01/14/17 05:15 White Blood Count 9.4 Red Blood Count 4.86 Hemoglobin 13.3 L Hematocrit 41.2 L Mean Corpuscular Volume 84.8 Mean Corpuscular Hemoglobin 27.4 L Mean Corpuscular Hemoglobin Concent 32.3 Red Cell Distribution Width 12.4 Platelet Count 175 Mean Platelet Volume 13.3 H Neutrophils % 55.7 Lymphocytes % 32.2 Monocytes % 8.8 Eosinophils % 2.4 Basophils % 0.6 Nucleated Red Blood Cells % 0.0 Neutrophils # 5.2 Lymphocytes # 3.0 H Monocytes # 0.8 Eosinophils # 0.2 Basophils # 0.1 Nucleated Red Blood Cells # 0.0 Sodium Level 142 Potassium Level 3.8 Chloride Level 104 Carbon Dioxide Level 22 Anion Gap 20 #H Blood Urea Nitrogen 12 Creatinine 0.92 Glucose Level 96 Calcium Level 8.6 Total Bilirubin 0.5 Direct Bilirubin 0.00 Indirect Bilirubin 0.5 Aspartate Amino Transf (AST/SGOT) 23 Alanine Aminotransferase (ALT/SGPT) 37 Alkaline Phosphatase 49 Total Protein 7.3 Albumin 3.8 Globulin 3.50 H Albumin/Globulin Ratio 1.08 Medications Medications Current Medications Ciprofloxacin/ Dextrose 200 ml @ 200 mls/hr Q12 IVPB Last administered on 08:33; Admin Dose 200 MLS/HR; Start 01/10/17 at 21:00 Metronidazole 100 ml @ 100 mls/hr Q8 IVPB Last administered on 01/14/17 05:30 ; Admin Dose 100 MLS/HR; Start 01/10/17 at 22:00 Potassium Chloride/Dextrose/ Sod Cl (D5-1/2ns + KCl 20 Meq) 1,000 ml @ 75 mls/ hr [id number] IV Last administered on 01/14/17 00:13; Admin Dose 75 MLS/HR; Start 01/10/17 at 16:08 Ondansetron HCl (Zofran Inj) 4 mg Q6H PRN IV NAUSEA AND/OR VOMITING; Start 01/10 at 16:30 Acetaminophen (Tylenol Tab) 650 mg Q6H PRN PO PAIN LEVEL 1-3 OR FEVER Last administered on 01/11/17 20:21; Admin Dose 650 MG; Start 01/10/17 at 16:30 Acetaminophen (Tylenol Supp) 650 mg Q6H PRN [place] PAIN LEVEL 1-3 OR FEVER; Start 01/10/17 at 16:30 Oxycodone/ Acetaminophen (Percocet (5/ 325)) 1 tab Q6H PRN PO MODERATE PAIN LEVEL 4-6; Start 01/10/17 at 16:30 Morphine Sulfate (morphine) 2 mg Q4H PRN IV SEVERE PAIN LEVEL 7-10; Start at 16:30 Docusate Sodium (Colace) 100 mg Q12H PRN PO CONSTIPATION; Start 01/10/17 at 16: 30 Bisacodyl (Dulcolax Supp) 10 mg DAILY PRN [place] CONSTIPATION; Start 01/10/17 at 16: 30 Pantoprazole (Protonix Iv) 40 mg DAILY@06 IV Last administered on 01/14/17t 05: 30; Admin Dose 40 MG; Start 01/11/17 at 06:00 JOSE DE JESUS KRISHNAMURTHY Jan 14, 2017 09:56
--- NOTE | 2017-01-14 10:08 | DS ---
DATE OF ADMISSION: 01/10/2017 DATE OF DISCHARGE: 01/14/2017 DISCHARGE DIAGNOSIS: Diverticulitis with microperforation. CONDITION ON DISCHARGE: Stable. DIET: Normal. HOSPITAL COURSE: A 36-year-old gentleman admitted with a several-day history of abdominal pain, smita sea, vomiting, found to have acute diverticulitis on CT abdomen. He was followed by Dr. Enriquez and Dr. Beckham during this admission. Treated with IV Flagyl and ciprofloxacin. Kept n.p.o. for sever al days. Today 01/14/2017, patient is tolerating p.o. diet without complication. His labs returned to normal with a white count of 9.4, hemoglobin 13.3, platelets within normal limits and normal rafael al function. The patient to be discharged home on p.o. Flagyl 500 mg t.i.d. x10 days, p.o. ciproflo xacin 500 mg b.i.d. x10 days. To follow up with Dr. Roger Beckham, general surgery. with possible surgery to be scheduled in the future. Dictated By: FABIAN MENDEZ/PATRICA Conf#: [id number] DID#: [id number]
--- NOTE | 2017-01-15 20:46 | PN ---
Date/Time of Note Date/Time of Note DATE: 01/14/17 TIME: 8:45 Assessment/Plan Lines/Catheters IV Catheter Type (from [facility]): Saline Lock Robledo in Place (from [facility]): No Assessment/Plan Chief Complaint/Hosp Course 1. Abdominal pain secondary to diverticulitis with microperforation. Hemodynamically stable and abdomen not peritonitic. Improving. -Antibiotics, -IV fluids, -Diet -Eventual outpatient follow-up for elective laparoscopic resection my. 2. Leukocytosis secondary to above. Improved 3. Anemia without evidence of acute blood loss. He will benefit from eventual outpatient colonoscopy after this is improved. 4. Fatty liver - encouraged to optimize his diet and lifestyle to improve his overall health status. 5. Body mass index 28. -encouraged to optimize his nutrition and lifestyle to improve his overall health status. Thank you, Late entry 01/14 Problems: Subjective 24 Hr Interval Summary No pain. No f/c. No n/v. No cp/sob. No cough. No tenorio/dizzy/visual or neuro changes. No dysuria. Bowel function. Tolerating diet. WBC normal. Exam/Review of Systems Vital Signs Vitals Vital Signs Date Time Temp Pulse Resp B/P Pulse Ox O2 Delivery O2 Flow Rate FiO2 01/14/17 08:12 98.4 72 20 106/66 95 01/13/17 20:30 Room Air Intake and Output 01/14/17 01/14/17 01/15/17 15:00 23:00 07:00 Intake Total 725 ml Balance 725 ml Exam Free Text/Dictation GENERAL: No acute distress, somewhat uncomfortable. HEENT: Pupils equal, reactive. No scleral icterus. Mucous membranes are somewhat dry. NECK: Supple. No JVD. PULMONARY: Normal respiratory effort. No wheezing. CARDIAC: S1, S2 present and regular. ABDOMEN: Soft. No rebound, no guarding, not rigid, not distended. Nontender EXTREMITIES: No edema. VASCULAR: Capillary refill less than 2 seconds. NEUROLOGIC: Alert, oriented, moves all 4 extremities grossly. Results Result Diagram: 01/14/17 0515 01/14/17 0515 JAZZ HUGO MD Jan 15, 2017 20:46
== END 2017-01-14 13:25 | disposition home or self-care (01) | DRG 392 ==
LOC: FTE 11:27 → MS2 14:39
PROVIDERS: ADMIT Family Medicine; ATTEND Family Medicine
DX: K57.20 Diverticulitis of large intestine with perforation and abscess without bleeding (principal); K76.0 Fatty (change of) liver, not elsewhere classified; Z72.0 Tobacco use; D64.9 Anemia, unspecified
CPT/HCPCS: 36415; 74176; 80048; 80053; 81001; 81003; 83690; 83735; 85025; 85610; 85730; 96365; 96368; 96375; C9113; J0744; J1885; J2270; J2405; J3480; J7030